=== PATIENT | male | born 1985 ===

== ENCOUNTER 2024-11-02 08:36 | Inpatient (IN) | payer OTHER, SELFPAY ==
[2024-11-02 08:42] VITALS: BP 155/99; PULSE 220; RESP 16; TEMP 36.9; O2SAT 98; BMI 26.6
--- NOTE | 2024-11-02 08:48 | ECG_ITS ---
Test Reason : tachycardia Blood Pressure : */* mmHG Vent. Rate : 107 BPM Atrial Rate : 107 BPM P-R Int : 126 ms QRS Dur : 100 ms QT Int : 328 ms P-R-T Axes : 81 63 64 degrees QTcB Int : 437 ms Sinus tachycardia Otherwise normal ECG No previous ECGs available Referred By: Generic ED Physician Electronically Signed By: CESAR PIEDRA MD
[2024-11-02 09:04] LABS: MANUAL DIFF FLAG NO
[2024-11-02 09:11] LABS: Basophils Absolute Auto 0.1 X10*3/uL (0.0-0.2); Basophils Percent Auto 0.5 % (0-2); Eosinophils Absolute Auto 0.1 X10*3/uL (0.0-0.4); Eosinophils Percent Auto 0.6 % (0-4); Hematocrit 46.6 % (42.0-52.0); Hemoglobin 15.6 g/dl (14.0-18.0); Imm Gran Abs Auto 0.04 X10*3/uL (0.00-0.03); Imm Gran Pct Auto 0.4 % (0.0-0.4); Lymphocytes Absolute Auto 1.5 X10*3/uL (1.2-4.9); Lymphocytes Percent Auto 15.1 % (20-40); Mean Corpuscular HGB Conc 33.5 g/dl (31.0-36.0); Mean Corpuscular Hemoglobin 29.1 pg (27.0-33.0); Mean Corpuscular Volume 86.9 fL (80.0-98.0); Mean Platelet Volume 10.3 fL (9.4-12.4); Monocytes Absolute Auto 0.9 X10*3/uL (0.1-1.2); Monocytes Percent Auto 8.8 % (2-11); Neutrophils Absolute Auto 7.5 x10*3/uL (2.0-8.3); Neutrophils Percent Auto 74.6 % (45-73); Platelet Count 243 X10*3/uL (160-400); Red Blood Count 5.36 X10*6/uL (4.60-5.80); Red Cell Distribution Width 13.2 % (11.0-16.0); White Blood Count 10.1 X10*3/uL (4.8-10.8)
[2024-11-02 09:19] LABS: Alanine Aminotransferase 24 U/L (0-40); Albumin Level 4.4 g/dL (3.5-5.0); Alkaline Phosphatase 57 U/L (39-117); Anion Gap 11 (12-20); Aspartate Amino Transferase 29 U/L (5-37); Bilirubin Total 0.9 mg/dL (0.0-1.0); Blood Urea Nitrogen 12 mg/dL (9-16); Calcium 9.2 mg/dL (8.4-10.2); Carbon Dioxide 26 mmol/L (22-29); Chloride 104 mmol/L (96-108); Creatinine Clr Calc Pharmacy 107.8; Estimated Glomerular Filt Rate > 60; Glucose Random 99 mg/dL (60-115); Potassium 3.9 mmol/L (3.3-5.1); Sodium 137 mmol/L (135-145); Total Protein 7.4 g/dL (6.5-8.0)
[2024-11-02 09:21] VITALS: BP 175/98; PULSE 115; RESP 14; TEMP 36.9; O2SAT 98
[2024-11-02 09:29] LABS: Troponin-I High Sensitivity < 2.7 ng/L (<3.5-35.0)
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
[2024-11-02 11:04] VITALS: BP 142/98; PULSE 110; RESP 13; TEMP 36.9; O2SAT 98
[2024-11-02 11:24] LABS: Appearance Urine Clear; Color Urine Yellow; Glucose Urine UA Negative (Negative); Leukocyte Esterase Urine Negative (Negative); Nitrite Urine Negative (Negative); Specific Gravity - Urine 1.015 (1.005-1.025); Urine Blood Negative (Negative); Urine Ketones 40 mg/dL (Negative); Urine Protein Negative (Neg-Trace)
[2024-11-02] MEDS: LORazepam 1 MG TABLET 2 MG PO ×2 (11:33→21:58)
[2024-11-02 11:35] LABS: Amphetamine Screen Urine POSITIVE (Not Detect); Barbiturates, Urine Not Detected (Not Detect); Benzodiazepines Screen Urine Not Detected (Not Detect); Buprenorphine Scr Positive (Not Detect); Cannabinoid Screen Urine Not Detected (Not Detect); Cocaine Screen Urine Not Detected (Not Detect); Fentanyl, urine Not Detected (Not Detect); Methadone Screen, Urine Not Detected (Not Detect); Opiate Screen Urine Not Detected (Not Detect); Oxycodone Screen Urine Not Detected (Not Detect); Phencyclidine Screen Urine Not Detected (Not Detect)
[2024-11-02 12:04] LABS: Ethanol < 10 mg/dL
--- NOTE | 2024-11-02 19:26 | PC.NURSE ---
Patient awake and alert. skin pwd, resp even and non labored. flat affect, reports increased depression, intermittent thoughts of SI, when asked if he has a plan patient states that he cannot say because then we would stop him. denies HI. calm and cooperative with care. currently resting watching TV
[2024-11-02 21:01] VITALS: BP 127/79; PULSE 104; RESP 18; TEMP 36.6; O2SAT 95
[2024-11-02 21:03] LABS: Acetaminophen LAB < 3 mcg/mL (<30); Salicylate < 5.0 mg/dL (15-30)
--- NOTE | 2024-11-02 22:26 | PC.NURSE ---
Patient resting, watching TV. skin pwd, resp even and non labored. flat affect, reports increased anxiety. medicated with ativan per order.
--- NOTE | 2024-11-02 23:27 | MHC.EDTECH ---
this tech assumed care of pt @ 2300, at this time the pt was witnessed resting quietly in his bed in the room
--- NOTE | 2024-11-03 00:15 | PC.NURSE ---
Care assumed and report received at 2300. The pt has been resting comfortably in the back area without distress noted. TV remains on for comfort at this time and does not appear to be providing any disruption to the pt and/or pod.
[2024-11-03 06:30] VITALS: BP 116/71; PULSE 99; RESP 17; TEMP 36.6; O2SAT 98
--- NOTE | 2024-11-03 06:38 | PC.NURSE ---
Late entry for 11/02 at 2300 Report received and care assumed at 2300. pt found to be resting comfortably in back area with eyes closed, respirations even and unlabored without distress noted. pt covered in blanket with tv on for comfort. pt has slept through the night without any needs reported or noted
--- NOTE | 2024-11-03 07:17 | PC.NURSE ---
Assumed care of patient at 0645, patient appears to be in no apparent distress at this time, sleeping, respirations even and unlabored. Continue plan of care for inpatient bedsearch
[2024-11-03] MEDS: LORazepam 1 MG TABLET 2 MG PO (20:30)
[2024-11-03 20:33] VITALS: BP 133/79; PULSE 91; RESP 20; TEMP 36.8; O2SAT 98
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
--- NOTE | 2024-11-04 05:42 | PC.NURSE ---
Patient slept through the night, no distress observed/reported at this time, 15 minutes safety check, no behavior and safety concerns, disposition per care team is sec-12 inpatient bed search, VSS, will continue to monitor
[2024-11-04 06:32] VITALS: BP 119/70; PULSE 80; RESP 17; TEMP 36.4; O2SAT 99
[2024-11-04 14:00] VITALS: BP 130/79; PULSE 90; RESP 16; TEMP 36.5; O2SAT 100
[2024-11-04 16:16] LABS: Alanine Aminotransferase 21 U/L (0-40); Albumin Level 4.1 g/dL (3.5-5.0); Alkaline Phosphatase 57 U/L (39-117); Anion Gap 13 (12-20); Aspartate Amino Transferase 25 U/L (5-37); Bilirubin Total 0.4 mg/dL (0.0-1.0); Blood Urea Nitrogen 19 mg/dL (9-16); Calcium 9.5 mg/dL (8.4-10.2); Carbon Dioxide 27 mmol/L (22-29); Chloride 106 mmol/L (96-108); Creatinine Clr Calc Pharmacy 86.2; Estimated Glomerular Filt Rate > 60; Glucose Random 142 mg/dL (60-115); Potassium 4.6 mmol/L (3.3-5.1); Sodium 141 mmol/L (135-145); Total Protein 7.3 g/dL (6.5-8.0)
--- NOTE | 2024-11-04 17:56 | PC.NURSE ---
Pt refused flu vaccine at this time
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
[2024-11-04 19:30] VITALS: BP 134/68; PULSE 85; RESP 16; TEMP 37.3; O2SAT 97
[2024-11-05 07:00] VITALS: BMI 25.6
[2024-11-05 07:25] VITALS: BP 117/70; PULSE 80; RESP 16; TEMP 36.9; O2SAT 99
[2024-11-05] MEDS: Nicotine 21 MG PATCH.TD24 TRANSDERMA (08:36)
[2024-11-05] MEDS: FLUoxetine HCl 20 MG CAPSULE PO (08:36)
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
[2024-11-05] MEDS: Acetaminophen 325 MG TABLET 650 MG PO (17:30)
[2024-11-05 21:30] VITALS: BP 132/82; PULSE 88; RESP 18; TEMP 36.8; O2SAT 97
[2024-11-05 21:35] VITALS: BP 132/82
[2024-11-05] MEDS: Prazosin HCL 1 MG CAPSULE PO (21:35)
[2024-11-06 07:20] VITALS: BP 130/59; PULSE 90; RESP 16; TEMP 37.1; O2SAT 98
--- NOTE | 2024-11-06 09:06 | HO.PSYCHPN ---
Subjective Subjective Date of Service: 11/06/24 Reason For Visit: Crisis Subjective Notes: 3 Day Interim History: pt signed 3 day notice; up on 11/11/24. Guarded. Irritable edge. Continues to report feeling depressed; pt stated, When my visited today. I told her I had an affair. She walked out and told me not to contact her again . Pt reports he feels like a failure . denies any side effects from starting medications. Pt states he is open to seeing a therapist when discharged. Medication Compliance: Yes Side effects from medications: No Attending Groups: Intermittent Review of Systems Constitutional: Reports as per HPI Eyes: Reports as per HPI Reports as per HPI Cardiovascular: Reports as per HPI Respiratory: Reports as per HPI Gastrointestinal: Reports as per HPI Genitourinary: Reports as per HPI Musculoskeletal: Reports as per HPI Skin/Breast: Reports as per HPI Reports as per HPI Psychiatric: Reports as per HPI Endocrine: Reports as per HPI Hematologic/Lymphatic: Reports as per HPI Allergic/Immunologic: Reports as per HPI Mental Status Exam Mental Status Exam Patient Appearance: Well Grooomed Patient Orientation: Person, Place, Time and Situation Level of Consciousness: Awake and Alert Patient Behavior: Guarded, Passive and Good Eye Contact Mood Description: Depressed Affect Description: Constricted Ability to Follow Directions: Good Speech Pattern: Clear Memory Description: Intact Thought Process: Intact Thought Content: positive for Intact Diagnostics Vital Signs (24Hr): Vital Signs - 24 hr 11/05/24 21:30 11/05/24 21:35 11/06/24 07:20 Temperature 98.2 F 98.7 F Pulse Rate 88 90 Respiratory Rate 18 16 Blood Pressure 132/82 132/82 130/59 L Pulse Oximetry 97 98 Oxygen Delivery Method Room Air Room Air BMI result Body Mass Index 25.6 Labs 11/02/24 09:00 11/04/24 15:28 Labs: Laboratory Results - last 48 hr 11/04/24 15:28 Sodium 141 Potassium 4.6 Chloride 106 Carbon Dioxide 27 Anion Gap 13 BUN 19 H Creatinine 1.15 Estim Creat Clear Calc 86.2 Estimated GFR > 60 Random Glucose 142 H Calcium 9.5 Total Bilirubin 0.4 AST 25 ALT 21 Alkaline Phosphatase 57 Total Protein 7.3 Albumin 4.1 Medications Medications Current Medications Acetaminophen (Acetaminophen 325 Mg Tablet) 650 mg PO Q6H PRN PRN Reason: Headache/Pain Mild Scale (1-3) Last Admin: 11/05/24 17:30 Dose: 650 mg Al Hydroxide/Mg Hydroxide (Magnesium Hydrox/Alum Hydrox 30 Ml Oral.Susp) 30 ml PO Q6H PRN PRN Reason: Heartburn/Nausea Fluoxetine HCl (Fluoxetine Hcl 20 Mg Capsule) 20 mg PO DAILY [facility] Last Admin: 11/05/24 08:36 Dose: 20 mg Hydroxyzine HCl (Hydroxyzine Hcl 25 Mg Tablet) 25 mg PO Q6H PRN PRN Reason: Anxiety Magnesium Hydroxide (Milk Of Magnesia 30 Ml Oral.Susp) 30 ml PO DAILY PRN PRN Reason: Constipation Nicotine (Nicotine 21 Mg Patch.Td24) 21 mg TRANSDERMA DAILY [facility] Last Admin: 11/05/24 08:36 Dose: 21 mg Nicotine Polacrilex (Nicotine Polacrilex 2 Mg Gum) 4 mg BUCCAL Q2H PRN PRN Reason: Nicotine Cravings Olanzapine (Olanzapine 5 Mg Tablet) 5 mg PO Q4H PRN PRN Reason: agitation Prazosin HCl (Prazosin Hcl 1 Mg Capsule) 1 mg PO BEDTIME [facility]; Protocol Last Admin: 11/05/24 21:35 Dose: 1 mg Trazodone HCl (Trazodone Hcl 50 Mg Tablet) 50 mg PO BEDTIME [id number] PRN PRN Reason: Insomnia Allergies Allergies Allergy/AdvReac Type Severity Reaction Status Date / Time No Known Allergies Allergy Verified 11/02/24 08:47 Assessment & Plan Assessment & Plan (1) MDD (major depressive disorder), recurrent episode: Status: Acute Code(s): F33.9 - Major depressive disorder, recurrent, unspecified (2) PTSD (post-traumatic stress disorder): Status: Acute Code(s): F43.10 - Post-traumatic stress disorder, unspecified (3) Alcohol use disorder: Status: Acute Code(s): F10.90 - Alcohol use, unspecified, uncomplicated (4) Stimulant use disorder: Status: Acute Code(s): F15.90 - Other stimulant use, unspecified, uncomplicated Plan Patient is a 39-year-old male with history of MDD, PTSD, ADHD, alcohol use disorder, stimulant use disorder and buprenorphine use disorder who self presented to ED due to suicidal ideation secondary to increased anxiety, insomnia and paranoia. Plan: CV 15 minute safety checks Start: Prozac 20mg PO daily Prazosin 1mg PO bedtime Obtain collateral Encourage groups Referral to outpatient psychiatric providers Discharge planning 11/06: pt signed 3 day notice; up on 11/11/24. Guarded. Irritable edge. Continues to report feeling depressed; pt stated, When my visited today. I told her I had an affair. She walked out and told me not to contact her again . Pt reports he feels like a failure . denies any side effects from starting medications. Pt states he is open to seeing a therapist when discharged. continue current tx plan. Patient educated on: diagnosis and medication risk/benefits Reason for continued inpatient stay Substantial Risk for: med/psych decompensation Time Spent With Patient Time: Total time managing care of this patient today _20___ minutes.
[2024-11-06] MEDS: FLUoxetine HCl 20 MG CAPSULE PO (09:19)
[2024-11-06] MEDS: Nicotine 21 MG PATCH.TD24 TRANSDERMA (09:20)
[2024-11-06] MEDS: Acetaminophen 325 MG TABLET 650 MG PO (12:34)
[2024-11-06 20:00] VITALS: BP 137/82; PULSE 94; RESP 16; TEMP 36.6; O2SAT 98
[2024-11-06] MEDS: Prazosin HCL 1 MG CAPSULE PO (20:22)
[2024-11-07 07:40] VITALS: BP 137/77; PULSE 90; RESP 14; TEMP 36.9; O2SAT 98
[2024-11-07] MEDS: FLUoxetine HCl 20 MG CAPSULE PO (08:35)
--- NOTE | 2024-11-07 10:28 | HO.PSYCHPN ---
Subjective Subjective Date of Service: 11/07/24 Reason For Visit: Crisis Interim History: pt signed 3 day notice; up on 11/11/24. Reports he si feeling better since coming to the hospital. He keeps mostly to self. Guarded. Irritable edge. He is tolerating medications. No pain. Observed talking on the phone, engaged and laughing. Denies any side effects from starting medications. Denies SI. Review of Systems Review of Systems Constitutional: No fever, chills, fatigue, night sweats, weight changes ENT/Mouth: No ear pain, hearing loss, nasal congestion, sinus pain, rhinorrhea, sore throat Eyes: No eye pain, swelling, redness, vision changes, discharge Cardio: No chest pain, palpitations, XAVIER, orthopnea, peripheral edema Pulm: No SOB, cough, sputum, wheezing, dyspnea, hemoptysis GI: No nausea, vomiting, hematemesis, abdominal pain, diarrhea, constipation, hematochezia, melena : No irregular bleeding, dysuria, frequency, urgency, hesitancy, hematuria, flank pain, urinary flow changes, urinary incontinence or retention MSK: No back pain, neck pain, joint pain, myalgias Skin: No lesions, rashes Neuro: No weakness, numbness, paresthesias, LOC, dizziness, headache Psych: No depression, HI, AH/VH, +SI, +anxiety, +insomnia All other systems reviewed and are negative. Constitutional: Reports as per HPI Eyes: Reports as per HPI Reports as per HPI Cardiovascular: Reports as per HPI Respiratory: Reports as per HPI Gastrointestinal: Reports as per HPI Genitourinary: Reports as per HPI Musculoskeletal: Reports as per HPI Skin/Breast: Reports as per HPI Reports as per HPI Psychiatric: Reports as per HPI Endocrine: Reports as per HPI Hematologic/Lymphatic: Reports as per HPI Allergic/Immunologic: Reports as per HPI Mental Status Exam Mental Status Exam Patient Appearance: Well Grooomed Patient Orientation: Person, Place, Time and Situation Level of Consciousness: Awake and Alert Patient Behavior: Guarded, Passive and Good Eye Contact Mood Description: Depressed Affect Description: Constricted Ability to Follow Directions: Good Speech Pattern: Clear Memory Description: Intact Diagnostics Vital Signs (24Hr): Vital Signs - 24 hr 11/06/24 20:00 11/07/24 07:40 Temperature 98 F 98.5 F Pulse Rate 94 90 Respiratory Rate 16 14 Blood Pressure 137/82 137/77 Pulse Oximetry 98 98 Oxygen Delivery Method Room Air Room Air BMI result Body Mass Index 25.6 Labs 11/02/24 09:00 11/04/24 15:28 Medications Medications Current Medications Acetaminophen (Acetaminophen 325 Mg Tablet) 650 mg PO Q6H PRN PRN Reason: Headache/Pain Mild Scale (1-3) Last Admin: 11/06/24 12:34 Dose: 650 mg Al Hydroxide/Mg Hydroxide (Magnesium Hydrox/Alum Hydrox 30 Ml Oral.Susp) 30 ml PO Q6H PRN PRN Reason: Heartburn/Nausea Fluoxetine HCl (Fluoxetine Hcl 20 Mg Capsule) 20 mg PO DAILY [facility] Last Admin: 11/07/24 08:35 Dose: 20 mg Hydroxyzine HCl (Hydroxyzine Hcl 25 Mg Tablet) 25 mg PO Q6H PRN PRN Reason: Anxiety Magnesium Hydroxide (Milk Of Magnesia 30 Ml Oral.Susp) 30 ml PO DAILY PRN PRN Reason: Constipation Nicotine (Nicotine 21 Mg Patch.Td24) 21 mg TRANSDERMA DAILY [facility] Last Admin: 11/07/24 08:54 Dose: Not Given Nicotine Polacrilex (Nicotine Polacrilex 2 Mg Gum) 4 mg BUCCAL Q2H PRN PRN Reason: Nicotine Cravings Olanzapine (Olanzapine 5 Mg Tablet) 5 mg PO Q4H PRN PRN Reason: agitation Prazosin HCl (Prazosin Hcl 1 Mg Capsule) 1 mg PO BEDTIME [facility]; Protocol Last Admin: 11/06/24 20:22 Dose: 1 mg Trazodone HCl (Trazodone Hcl 50 Mg Tablet) 50 mg PO BEDTIME MRX1 PRN PRN Reason: Insomnia Allergies Allergies Allergy/AdvReac Type Severity Reaction Status Date / Time No Known Allergies Allergy Verified 11/02/24 08:47 Assessment & Plan Assessment & Plan (1) MDD (major depressive disorder), recurrent episode: Status: Acute Code(s): F33.9 - Major depressive disorder, recurrent, unspecified (2) PTSD (post-traumatic stress disorder): Status: Acute Code(s): F43.10 - Post-traumatic stress disorder, unspecified (3) Alcohol use disorder: Status: Acute Code(s): F10.90 - Alcohol use, unspecified, uncomplicated (4) Stimulant use disorder: Status: Acute Code(s): F15.90 - Other stimulant use, unspecified, uncomplicated Plan Patient is a 39-year-old male with history of MDD, PTSD, ADHD, alcohol use disorder, stimulant use disorder and buprenorphine use disorder who self presented to ED due to suicidal ideation secondary to increased anxiety, insomnia and paranoia. Plan: CV 15 minute safety checks Start: Prozac 20mg PO daily Prazosin 1mg PO bedtime Obtain collateral Encourage groups Referral to outpatient psychiatric providers Discharge planning 11/06: pt signed 3 day notice; up on 11/11/24. Guarded. Irritable edge. Continues to report feeling depressed; pt stated, When my visited today. I told her I had an affair. She walked out and told me not to contact her again . Pt reports he feels like a failure . denies any side effects from starting medications. Pt states he is open to seeing a therapist when discharged. continue current tx plan. 11/07: continue current management and treatment plan. Reason for continued inpatient stay Substantial Risk for: harm to self and rapid decompensation Time Spent With Patient Time: Total time managing care of this patient today ____ minutes.
[2024-11-07] MEDS: Acetaminophen 325 MG TABLET 650 MG PO (10:41)
[2024-11-07 11:54] LABS: Cholesterol 207 mg/dL (<200); HDL Cholesterol 60 mg/dL (>40); LDL Cholesterol Calculated 125 mg/dL (<100); Triglycerides 113 mg/dL (<150)
[2024-11-07 20:00] VITALS: BP 127/78; PULSE 79; RESP 16; TEMP 37.1; O2SAT 98
[2024-11-07] MEDS: Prazosin HCL 1 MG CAPSULE PO (20:14)
[2024-11-07] MEDS: hydrOXYzine HCL 25 MG TABLET PO (20:21)
[2024-11-08 07:35] VITALS: BP 134/82; PULSE 94; RESP 16; TEMP 36.9; O2SAT 98
[2024-11-08] MEDS: FLUoxetine HCl 20 MG CAPSULE PO (09:14)
--- NOTE | 2024-11-08 09:49 | HO.PSYCHPN ---
Subjective Subjective Date of Service: 11/08/24 Reason For Visit: Crisis Interim History: Patient denying any complaints. Says he is not anxious or depressed today. Pt signed 3 day notice; up on 11/11/24. Reports he si feeling better since coming to the hospital. Guarded. He is medication compliant. He is tolerating Fluoxetine and Prazosin well. Denies SI. Review of Systems Review of Systems Constitutional: No fever, chills, fatigue, night sweats, weight changes ENT/Mouth: No ear pain, hearing loss, nasal congestion, sinus pain, rhinorrhea, sore throat Eyes: No eye pain, swelling, redness, vision changes, discharge Cardio: No chest pain, palpitations, XAVIER, orthopnea, peripheral edema Pulm: No SOB, cough, sputum, wheezing, dyspnea, hemoptysis GI: No nausea, vomiting, hematemesis, abdominal pain, diarrhea, constipation, hematochezia, melena : No irregular bleeding, dysuria, frequency, urgency, hesitancy, hematuria, flank pain, urinary flow changes, urinary incontinence or retention MSK: No back pain, neck pain, joint pain, myalgias Skin: No lesions, rashes Neuro: No weakness, numbness, paresthesias, LOC, dizziness, headache Psych: No depression, HI, AH/VH, +SI, +anxiety, +insomnia All other systems reviewed and are negative. Constitutional: Reports as per HPI Eyes: Reports as per HPI Reports as per HPI Cardiovascular: Reports as per HPI Respiratory: Reports as per HPI Gastrointestinal: Reports as per HPI Genitourinary: Reports as per HPI Musculoskeletal: Reports as per HPI Skin/Breast: Reports as per HPI Reports as per HPI Psychiatric: Reports as per HPI Endocrine: Reports as per HPI Hematologic/Lymphatic: Reports as per HPI Allergic/Immunologic: Reports as per HPI Mental Status Exam Mental Status Exam Patient Appearance: Well Grooomed Patient Orientation: Person, Place, Time and Situation Level of Consciousness: Awake and Alert Patient Behavior: Guarded, Passive and Good Eye Contact Mood Description: Depressed Affect Description: Constricted Ability to Follow Directions: Good Speech Pattern: Clear Memory Description: Intact Diagnostics Vital Signs (24Hr): Vital Signs - 24 hr 11/07/24 20:00 11/08/24 07:35 Temperature 98.7 F 98.4 F Pulse Rate 79 94 Respiratory Rate 16 16 Blood Pressure 127/78 134/82 Pulse Oximetry 98 98 Oxygen Delivery Method Room Air Room Air BMI result Body Mass Index 25.6 Labs 11/02/24 09:00 11/04/24 15:28 Labs: Laboratory Results - last 48 hr 11/07/24 11:12 Triglycerides 113 Cholesterol 207 H LDL Cholesterol, Calc 125 H HDL Cholesterol 60 Medications Medications Current Medications Acetaminophen (Acetaminophen 325 Mg Tablet) 650 mg PO Q6H PRN PRN Reason: Headache/Pain Mild Scale (1-3) Last Admin: 11/07/24 10:41 Dose: 650 mg Al Hydroxide/Mg Hydroxide (Magnesium Hydrox/Alum Hydrox 30 Ml Oral.Susp) 30 ml PO Q6H PRN PRN Reason: Heartburn/Nausea Fluoxetine HCl (Fluoxetine Hcl 20 Mg Capsule) 20 mg PO DAILY [facility] Last Admin: 11/08/24 09:14 Dose: 20 mg Hydroxyzine HCl (Hydroxyzine Hcl 25 Mg Tablet) 25 mg PO Q6H PRN PRN Reason: Anxiety Last Admin: 11/07/24 20:21 Dose: 25 mg Magnesium Hydroxide (Milk Of Magnesia 30 Ml Oral.Susp) 30 ml PO DAILY PRN PRN Reason: Constipation Nicotine (Nicotine 21 Mg Patch.Td24) 21 mg TRANSDERMA DAILY [facility] Last Admin: 11/08/24 09:15 Dose: Not Given Nicotine Polacrilex (Nicotine Polacrilex 2 Mg Gum) 4 mg BUCCAL Q2H PRN PRN Reason: Nicotine Cravings Olanzapine (Olanzapine 5 Mg Tablet) 5 mg PO Q4H PRN PRN Reason: agitation Prazosin HCl (Prazosin Hcl 1 Mg Capsule) 1 mg PO BEDTIME [facility]; Protocol Last Admin: 11/07/24 20:14 Dose: 1 mg Trazodone HCl (Trazodone Hcl 50 Mg Tablet) 50 mg PO BEDTIME MRX1 PRN PRN Reason: Insomnia Allergies Allergies Allergy/AdvReac Type Severity Reaction Status Date / Time No Known Allergies Allergy Verified 11/02/24 08:47 Assessment & Plan Assessment & Plan (1) MDD (major depressive disorder), recurrent episode: Status: Acute Code(s): F33.9 - Major depressive disorder, recurrent, unspecified (2) PTSD (post-traumatic stress disorder): Status: Acute Code(s): F43.10 - Post-traumatic stress disorder, unspecified (3) Alcohol use disorder: Status: Acute Code(s): F10.90 - Alcohol use, unspecified, uncomplicated (4) Stimulant use disorder: Status: Acute Code(s): F15.90 - Other stimulant use, unspecified, uncomplicated Plan Patient is a 39-year-old male with history of MDD, PTSD, ADHD, alcohol use disorder, stimulant use disorder and buprenorphine use disorder who self presented to ED due to suicidal ideation secondary to increased anxiety, insomnia and paranoia. Plan: CV 15 minute safety checks Start: Prozac 20mg PO daily Prazosin 1mg PO bedtime Obtain collateral Encourage groups Referral to outpatient psychiatric providers Discharge planning 11/06: pt signed 3 day notice; up on 11/11/24. Guarded. Irritable edge. Continues to report feeling depressed; pt stated, When my visited today. I told her I had an affair. She walked out and told me not to contact her again . Pt reports he feels like a failure . denies any side effects from starting medications. Pt states he is open to seeing a therapist when discharged. continue current tx plan. 11/07: continue current management and treatment plan. 11/08: Continue current management and treatment plan. Reason for continued inpatient stay Substantial Risk for: harm to self, inability to function and rapid decompensation Time Spent With Patient Time: Total time managing care of this patient today ____ minutes.
[2024-11-08] MEDS: Acetaminophen 325 MG TABLET 650 MG PO (10:47)
[2024-11-08] MEDS: Ibuprofen 600 MG TABLET PO ×2 (11:36→20:45)
[2024-11-08 20:00] VITALS: BP 133/89; PULSE 93; TEMP 36.6; O2SAT 99
[2024-11-08] MEDS: traZODone HCL 50 MG TABLET PO (21:20)
[2024-11-09 07:36] VITALS: BP 133/90; PULSE 98; RESP 16; TEMP 36.8; O2SAT 98
[2024-11-09] MEDS: FLUoxetine HCl 20 MG CAPSULE PO (09:06)
[2024-11-09] MEDS: Acetaminophen 325 MG TABLET 650 MG PO (09:35)
--- NOTE | 2024-11-09 10:18 | P.PNPSI_ITS ---
Subjective Subjective Date of Service: 11/09/24 Reason For Visit: Crisis Subjective Notes: 3 Day Interim History: Active on unit, social with peers. attending groups. pt reports he would like to attend [facility] after discharge; social science analyst aware. Patient reports feeling restless but not depressed. denies SI/HI/VH/AH. per nursing, slept 7 hours. Medication Compliance: Yes Side effects from medications: No Attending Groups: Yes Review of Systems Constitutional: Reports as per HPI Eyes: Reports as per HPI Reports as per HPI Cardiovascular: Reports as per HPI Respiratory: Reports as per HPI Gastrointestinal: Reports as per HPI Genitourinary: Reports as per HPI Musculoskeletal: Reports as per HPI Skin/Breast: Reports as per HPI Reports as per HPI Psychiatric: Reports as per HPI Endocrine: Reports as per HPI Hematologic/Lymphatic: Reports as per HPI Allergic/Immunologic: Reports as per HPI Mental Status Exam Mental Status Exam Narrative: Pt is alert and oriented; behavior is cooperative, calm; dressed in casual attire; mood is described as restless ; eye contact appropriate; Speech is normal rate, volume and not pressured; thought process is organized; Thought content is on tx; denies SI/HI/VH/AH. Diagnostics Vital Signs (24Hr): Vital Signs - 24 hr 11/08/24 20:00 11/09/24 07:36 Temperature 97.8 F 98.2 F Pulse Rate 93 98 Respiratory Rate 16 Blood Pressure 133/89 133/90 H Pulse Oximetry 99 98 Oxygen Delivery Method Room Air Room Air BMI result Body Mass Index 25.6 Labs 11/02/24 09:00 11/04/24 15:28 Labs: Laboratory Results - last 48 hr 11/07/24 11:12 Triglycerides 113 Cholesterol 207 H LDL Cholesterol, Calc 125 H HDL Cholesterol 60 Medications Medications Current Medications Acetaminophen (Acetaminophen 325 Mg Tablet) 650 mg PO Q6H PRN PRN Reason: Headache/Pain Mild Scale (1-3) Last Admin: 11/09/24 09:35 Dose: 650 mg Al Hydroxide/Mg Hydroxide (Magnesium Hydrox/Alum Hydrox 30 Ml Oral.Susp) 30 ml PO Q6H PRN PRN Reason: Heartburn/Nausea Fluoxetine HCl (Fluoxetine Hcl 20 Mg Capsule) 20 mg PO DAILY [facility] Last Admin: 11/09/24 09:06 Dose: 20 mg Hydroxyzine HCl (Hydroxyzine Hcl 25 Mg Tablet) 25 mg PO Q6H PRN PRN Reason: Anxiety Last Admin: 11/07/24 20:21 Dose: 25 mg Ibuprofen (Ibuprofen 600 Mg Tablet) 600 mg PO Q6H PRN PRN Reason: Pain, Moderate(Pain Scale 4-6) Last Admin: 11/08/24 20:45 Dose: 600 mg Magnesium Hydroxide (Milk Of Magnesia 30 Ml Oral.Susp) 30 ml PO DAILY PRN PRN Reason: Constipation Nicotine (Nicotine 21 Mg Patch.Td24) 21 mg TRANSDERMA DAILY [facility] Last Admin: 11/09/24 09:06 Dose: Not Given Nicotine Polacrilex (Nicotine Polacrilex 2 Mg Gum) 4 mg BUCCAL Q2H PRN PRN Reason: Nicotine Cravings Olanzapine (Olanzapine 5 Mg Tablet) 5 mg PO Q4H PRN PRN Reason: agitation Prazosin HCl (Prazosin Hcl 1 Mg Capsule) 1 mg PO BEDTIME [facility]; Protocol Last Admin: 11/08/24 20:47 Dose: Not Given Trazodone HCl (Trazodone Hcl 50 Mg Tablet) 50 mg PO BEDTIME MRX1 PRN PRN Reason: Insomnia Last Admin: 11/08/24 21:20 Dose: 50 mg Allergies Allergies Allergy/AdvReac Type Severity Reaction Status Date / Time No Known Allergies Allergy Verified 11/02/24 08:47 Assessment & Plan Assessment & Plan (1) MDD (major depressive disorder), recurrent episode: Status: Acute Code(s): F33.9 - Major depressive disorder, recurrent, unspecified (2) PTSD (post-traumatic stress disorder): Status: Acute Code(s): F43.10 - Post-traumatic stress disorder, unspecified (3) Alcohol use disorder: Status: Acute Code(s): F10.90 - Alcohol use, unspecified, uncomplicated (4) Stimulant use disorder: Status: Acute Code(s): F15.90 - Other stimulant use, unspecified, uncomplicated Plan Patient is a 39-year-old male with history of MDD, PTSD, ADHD, alcohol use disorder, stimulant use disorder and buprenorphine use disorder who self presented to ED due to suicidal ideation secondary to increased anxiety, insomnia and paranoia. Plan: CV 15 minute safety checks Start: Prozac 20mg PO daily Prazosin 1mg PO bedtime Obtain collateral Encourage groups Referral to outpatient psychiatric providers Discharge planning 11/06: pt signed 3 day notice; up on 11/11/24. Guarded. Irritable edge. Continues to report feeling depressed; pt stated, When my visited today. I told her I had an affair. She walked out and told me not to contact her again . Pt reports he feels like a failure . denies any side effects from starting medications. Pt states he is open to seeing a therapist when discharged. continue current tx plan. 11/07: continue current management and treatment plan. 11/08: Continue current management and treatment plan. 11/09: Active on unit, social with peers. attending groups. pt reports he would like to attend [facility] after discharge; social science analyst aware. Patient reports feeling restless but not depressed. denies SI/HI/VH/AH. per nursing, slept 7 hours. continue current tx plan. Patient educated on: diagnosis, medication risk/benefits and therapeutic strategies Reason for continued inpatient stay Substantial Risk for: med/psych decompensation Time Spent With Patient Time: Total time managing care of this patient today _20___ minutes.
[2024-11-09] MEDS: Ibuprofen 600 MG TABLET PO (11:46)
[2024-11-09 19:55] VITALS: RESP 16
[2024-11-09 22:30] VITALS: TEMP 36.4
[2024-11-09] MEDS: Loperamide HCl 2 MG CAPSULE PO (22:45)
[2024-11-09] MEDS: Ondansetron ODT 4 MG TAB.RAPDIS TRANSLINGU (22:45)
[2024-11-10] MEDS: Ibuprofen 600 MG TABLET PO ×3 (07:09→20:18)
[2024-11-10 08:00] VITALS: RESP 18
[2024-11-10] MEDS: Acetaminophen 325 MG TABLET 650 MG PO (12:04)
--- NOTE | 2024-11-10 14:51 | P.PNPSI_ITS ---
Subjective Subjective Date of Service: 11/10/24 Reason For Visit: Crisis Interim History: found resting in bed, rousable. declined interview c/o very poor sleep 2/2 vomiting and diarrhea overnight. informed of norovirus testing. per staff, 3- day up tomorrow. + groups. refused prazosin last night. Mental Status Exam Mental Status Exam Narrative: Pt is alert and oriented; behavior is cooperative, calm; dressed in casual attire; mood is not assessed; eye contact appropriate; Speech is normal rate, volume and not pressured; thought process is organized; Thought content is on tx; no SI/HI/VH/AH expressed. Diagnostics Vital Signs (24Hr): Vital Signs - 24 hr 11/09/24 19:55 11/09/24 22:30 11/10/24 08:00 Temperature 97.5 F Respiratory Rate 16 18 BMI result Body Mass Index 25.6 Labs 11/02/24 09:00 11/04/24 15:28 Medications Medications Current Medications Acetaminophen (Acetaminophen 325 Mg Tablet) 650 mg PO Q6H PRN PRN Reason: Headache/Pain Mild Scale (1-3) Last Admin: 11/10/24 12:04 Dose: 650 mg Al Hydroxide/Mg Hydroxide (Magnesium Hydrox/Alum Hydrox 30 Ml Oral.Susp) 30 ml PO Q6H PRN PRN Reason: Heartburn/Nausea Fluoxetine HCl (Fluoxetine Hcl 20 Mg Capsule) 20 mg PO DAILY [facility] Last Admin: 11/10/24 10:27 Dose: Not Given Hydroxyzine HCl (Hydroxyzine Hcl 25 Mg Tablet) 25 mg PO Q6H PRN PRN Reason: Anxiety Last Admin: 11/07/24 20:21 Dose: 25 mg Ibuprofen (Ibuprofen 600 Mg Tablet) 600 mg PO Q6H PRN PRN Reason: Pain, Moderate(Pain Scale 4-6) Last Admin: 11/10/24 14:35 Dose: 600 mg Loperamide HCl (Loperamide Hcl 2 Mg Capsule) 2 mg PO Q6H PRN PRN Reason: loose stool Last Admin: 11/09/24 22:45 Dose: 2 mg Magnesium Hydroxide (Milk Of Magnesia 30 Ml Oral.Susp) 30 ml PO DAILY PRN PRN Reason: Constipation Nicotine Polacrilex (Nicotine Polacrilex 2 Mg Gum) 4 mg BUCCAL Q2H PRN PRN Reason: Nicotine Cravings Olanzapine (Olanzapine 5 Mg Tablet) 5 mg PO Q4H PRN PRN Reason: agitation Ondansetron HCl (Ondansetron Odt 4 Mg Tab.Rapdis) 4 mg TRANSLINGU Q6H PRN PRN Reason: Nausea and Vomiting Last Admin: 11/09/24 22:45 Dose: 4 mg Prazosin HCl (Prazosin Hcl 1 Mg Capsule) 1 mg PO BEDTIME [facility]; Protocol Last Admin: 11/09/24 22:33 Dose: Not Given Trazodone HCl (Trazodone Hcl 50 Mg Tablet) 50 mg PO BEDTIME MRX1 PRN PRN Reason: Insomnia Last Admin: 11/08/24 21:20 Dose: 50 mg Allergies Allergies Allergy/AdvReac Type Severity Reaction Status Date / Time No Known Allergies Allergy Verified 11/02/24 08:47 Assessment & Plan Assessment & Plan (1) MDD (major depressive disorder), recurrent episode: Status: Acute Code(s): F33.9 - Major depressive disorder, recurrent, unspecified (2) PTSD (post-traumatic stress disorder): Status: Acute Code(s): F43.10 - Post-traumatic stress disorder, unspecified (3) Alcohol use disorder: Status: Acute Code(s): F10.90 - Alcohol use, unspecified, uncomplicated (4) Stimulant use disorder: Status: Acute Code(s): F15.90 - Other stimulant use, unspecified, uncomplicated Plan Patient is a 39-year-old male with history of MDD, PTSD, ADHD, alcohol use disorder, stimulant use disorder and buprenorphine use disorder who self presented to ED due to suicidal ideation secondary to increased anxiety, insomnia and paranoia. Plan: CV 15 minute safety checks Start: Prozac 20mg PO daily Prazosin 1mg PO bedtime Obtain collateral Encourage groups Referral to outpatient psychiatric providers Discharge planning 11/06: pt signed 3 day notice; up on 11/11/24. Guarded. Irritable edge. Continues to report feeling depressed; pt stated, When my visited today. I told her I had an affair. She walked out and told me not to contact her again . Pt reports he feels like a failure . denies any side effects from starting medications. Pt states he is open to seeing a therapist when discharged. continue current tx plan. 11/07: continue current management and treatment plan. 11/08: Continue current management and treatment plan. 11/09: Active on unit, social with peers. attending groups. pt reports he would like to attend PHP after discharge; social human services assistants aware. Patient reports feeling restless but not depressed. denies SI/HI/VH/AH. per nursing, slept 7 hours. continue current tx plan. 11/10: very poor sleep overnight due to vomiting and diarrhea. declined interview as a result. check for norovirus, otherwise continue current mgmt for now. Reason for continued inpatient stay Substantial Risk for: harm to self and inability to function Time Spent With Patient Time: Total time managing care of this patient today ____ minutes.
[2024-11-10 20:00] VITALS: BP 122/68; PULSE 97; RESP 16; TEMP 36.9; O2SAT 98
[2024-11-10] MEDS: traZODone HCL 50 MG TABLET PO (21:11)
--- NOTE | 2024-11-10 22:18 | PC.NURSE ---
Pt refused HS Prazosin at 2100, states it gives me nightmare .
[2024-11-11 07:28] VITALS: BP 124/75; PULSE 102; RESP 16; TEMP 37.3; O2SAT 98
[2024-11-11] MEDS: FLUoxetine HCl 20 MG CAPSULE PO (09:06)
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
== END 2024-11-11 11:20 | disposition home or self-care (01) | DRG 885 ==
LOC: HO.ED 18:39 → HO.PADLT16 11-04 12:57
PROVIDERS: Physician Assistant Medical; Admitting Provider Registered Nurse; Emergency Provider Emergency Medicine; Visit Provider Psychiatry & Neurology Psychiatry
DX: F33.9 Major depressive disorder, recurrent, unspecified (principal); R45.851 Suicidal ideations; F19.10 Other psychoactive substance abuse, uncomplicated; F43.10 Post-traumatic stress disorder, unspecified; F10.90 Alcohol use, unspecified, uncomplicated; F15.90 Other stimulant use, unspecified, uncomplicated
CPT/HCPCS: 36415; 80053; 80061; 80143; 80179; 80307; 81003; 84484; 85025; 93005; 99285; S9485

== ENCOUNTER → 2024-11-02 08:48 | Outpatient (BNV) | payer OTHER, SELFPAY | PROVIDERS: Emergency Provider Emergency Medicine; Visit Provider Internal Medicine Cardiovascular Disease | DX: R00.0 Tachycardia, unspecified (principal) | CPT/HCPCS: 93010 ==

== ENCOUNTER → 2024-11-04 12:53 | Outpatient (BNV) | payer OTHER, SELFPAY | PROVIDERS: Admitting Provider Registered Nurse; Emergency Provider Emergency Medicine; Visit Provider Psychiatry & Neurology Psychiatry | DX: F33.9 Major depressive disorder, recurrent, unspecified (principal); F43.10 Post-traumatic stress disorder, unspecified; F10.90 Alcohol use, unspecified, uncomplicated; F15.90 Other stimulant use, unspecified, uncomplicated | CPT/HCPCS: 90792; 99231; 99232; 99239 ==

== ENCOUNTER → 2024-12-16 11:00 | Outpatient (BNV) | payer OTHER, SELFPAY | PROVIDERS: Visit Provider Psychiatry & Neurology Psychiatry | DX: F33.9 Major depressive disorder, recurrent, unspecified (principal); F34.89 Other specified persistent mood disorders; F11.20 Opioid dependence, uncomplicated; F19.20 Other psychoactive substance dependence, uncomplicated; F43.10 Post-traumatic stress disorder, unspecified; Z86.59 Personal history of other mental and behavioral disorders | CPT/HCPCS: 99214 ==

== ENCOUNTER 2024-12-18 14:08 | Outpatient (REF) | payer OTHER, SELFPAY ==
[2024-12-18 14:47] LABS: Amphetamine Screen Urine Not Detected (Not Detect); Barbiturates, Urine Not Detected (Not Detect); Benzodiazepines Screen Urine Not Detected (Not Detect); Buprenorphine Scr Not Detected (Not Detect); Cannabinoid Screen Urine Not Detected (Not Detect); Cocaine Screen Urine Not Detected (Not Detect); Fentanyl, urine Not Detected (Not Detect); Methadone Screen, Urine Not Detected (Not Detect); Opiate Screen Urine Not Detected (Not Detect); Oxycodone Screen Urine Not Detected (Not Detect); Phencyclidine Screen Urine Not Detected (Not Detect)
== END 2024-12-18 14:09 | disposition home or self-care (01) ==
LOC: HO.LNP 14:08
PROVIDERS: Visit Provider Psychiatry & Neurology Psychiatry
DX: F15.99 Other stimulant use, unspecified with unspecified stimulant-induced disorder (principal); F10.90 Alcohol use, unspecified, uncomplicated; F33.2 Major depressive disorder, recurrent severe without psychotic features
CPT/HCPCS: 80307

== ENCOUNTER 2024-12-24 11:00 | Outpatient (RCR) | payer OTHER, SELFPAY ==
[2024-12-11 10:47] VITALS: BMI 25.4
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
--- NOTE | 2024-12-11 18:30 | HO.PS.ADMBH ---
HPI Date of Service: 12/11/24 Chief Complaint: MDD Sources of Information: patient interviewed, chart reviewed and crisis/core team assessment reviewed HPI Narrative: Patient is a 39 yo male with with history of MDD, PTSD, ADHD, alcohol use disorder, stimulant use disorder and buprenorphine use disorder who step-down from [facility] after being admitted 7 days for suicidal ideation secondary to increased anxiety, insomnia and paranoia. He was discharged 1 month ago on fluoxetine. ?I just cracked, the depression, lack of focus, old trauma coming up and just could not deal with it. People around me wanted me to go in . Thus far he has found fluoxetine to be partially effective, he notices not being as depressed day-to-day however he continues to have mood swings better very intense, marked by irritability poor frustration tolerance, ice ?I snap at people. My (ex) is really triggering me.? She struggles with mood lability, anger outbursts, agitation, sleep irregularity, appetite poor, and energy unstable and fluctuates throughout the day. Anxiety is pretty high? however apathy numbness some of this he. He endorses passive SI but admits as long as he avoids substances he is not a danger to himself. He denies any HI, AH, VH or other psychotic symptoms. No evidence of thought disorder, is calm, cooperative, but minimally engaged with irritable edge, distractible, appears annoyed, evasive around some subjects, most focused on complaints of his . He agrees with plan to start a mood stabilizer. Past Psychiatric History: [facility] x1: No prior PHP, respite, detox/rehab admissions Does not have outpatient psychiatric providers History of taking Adderall when he was younger stopped getting prescriptions for this at the age of 18. CURRENT MEDICATIONS: fluoxetine 20 mg qam [facility] Medical History (Updated 12/16/24 @ 23:03 by Pascale Dorado MD) Stimulant use disorder Alcohol use disorder Family History: Unknown Social History: Lives with mother. but for the past year. Three children who are in their mother's custody. Unemployed. High school diploma. Trauma History: Yes Diagnostics Vital Signs (24Hr): BMI result Body Mass Index 25.4 Meds/Allergies Allergies Allergies Allergy/AdvReac Type Severity Reaction Status Date / Time No Known Allergies Allergy Verified 11/02/24 08:47 Mental Status Exam Mental Status Exam Narrative: Alert, oriented, in no acute distress. Calm, cooperative, engageable but guarded and evasive at times, somewhat defensive. Mild hyperactivity with leg bouncing, animated communicator, shifting in seat but remains seated for encounter. Eye contact intermittent. Mood depressed, affect dysthymic, mild irritable edge. Speech normal. Thought process linear, coherent. Thought content related to stressors, overwhelmed, annoyed at times, some transient helplessness and hopelessness, denies SI, intention or plan. Denies any aggressive ideation. No paranoia or delusional content elicited. No evidence of psychosis. Insight and judgment fair but adequate. Assessment & Plan Assessment & Plan (1) MDD (major depressive disorder), recurrent episode: Status: Acute Code(s): F33.9 - Major depressive disorder, recurrent, unspecified (2) Other specified persistent mood disorders: Status: Acute Code(s): F34.89 - Other specified persistent mood disorders Assessment and Plan: mood dysregulation, namely emotional reactivity, low frustration tolerance w irritability (likely related to ADHD) h/o SIMD r/o cyclothymia vs Bipolar spectrum or other mood disorders r/o character pathology (3) Polysubstance (including opioids) dependence, daily use: Status: Acute Code(s): F11.20 - Opioid dependence, uncomplicated; F19.20 - Other psychoactive substance dependence, uncomplicated (4) PTSD (post-traumatic stress disorder): Status: Acute Code(s): F43.10 - Post-traumatic stress disorder, unspecified (5) History of ADHD: Status: Acute Code(s): Z86.59 - Personal history of other mental and behavioral disorders Plan Admit to [facility] VS pending start cariprazine 1.5 mg qhs continue other regular medications?- fluoxetine 20 mg qam Routine lab work ordered as indicated EKG, routine for baseline QTc for medication considerations as indicated UDS as indicated MassPat reviewed Continue to monitor as per protocol Patient educated on: diagnosis, medication risk/benefits and substance abuse Informed Consent: understands Reason for continued partial hosp. stay Substantial Risk for: inability to function, rapid decompensation and med/psych decompensation Certification I certify that partial hospital treatment is medically necessary due to the symptoms and problems resulting from the patient's mental illness and the failure to treat the patient at the partial hospital level of care would likely result in the patient requiring inpatient psychiatric care which could not be prevented at a less intensive level of care. Time Spent With Patient Time: Total time managing care of this patient today __60__ minutes.
--- NOTE | 2024-12-15 23:19 | HO.PHPPROGNO ---
Subjective Subjective Date of Service: 12/15/24 Reason For Visit: MDD Interim History: Patient seen for follow-up. no major events or concerns in the interim. Things are going okay I guess He has been taking cariprazine 1.5 mg qhs, denies any adverse effects. He feels he is calmer and more stable, is that the medication? He relays frustrations dealing with his /soon to be ex-. He smiles dryly She says I'm a narcissist. I dont know...maybe I am . He has been trying to refrain from engaging in bad habits, says he is a very impulsive person in general. He denies feeling irritable or sheppard, but relays being very reactive if provoked. He has not had any incidents in the past few days. Feels a little more in control, denies any relapses, some transient cravings, although says he has not had any recently, but also adds that he is not really out there (in the community) right now I'm mostly just doing the program and going home... just staying out of trouble for now . He is not sure if this stability will continue to hold up once he has left the program. We continues on fluoxetine, feels it has helped him with depression. Initially experienced some side effects (emotional blunting, feeling numb/empty) but says this has resolved. He denies any anxiety at this time. Will start amantadine to target ADHD, impulsivity and substance/cocaine addiction. Medication Compliance: Yes Side effects from medications: No Attending Groups: Yes Review of Systems Acute medical concerns: No Mental Status Exam Mental Status Exam Narrative: Alert, oriented, in no acute distress. Calm, cooperative, engageable but guarded and evasive at times, somewhat defensive. Mild hyperactivity with leg bouncing, animated communicator, shifting in seat but remains seated for encounter. Eye contact intermittent. Mood calmer less depressed, less irritable, affect variable, momentarily intense edge, no lability or irritability. Speech normal. Thought process linear, coherent. Thought content related to stressors, impulsivity, easily annoyed at times (mostly by his ex-partner,, denies SI, intention or plan. Denies any aggressive ideation or HI. No paranoia or delusional content elicited. No evidence of psychosis. Insight and judgment fair but adequate. Diagnostics Vital Signs (24Hr): BMI result Body Mass Index 25.4 Assessment & Plan Assessment & Plan (1) MDD (major depressive disorder), recurrent episode: Status: Acute Code(s): F33.9 - Major depressive disorder, recurrent, unspecified (2) Other specified persistent mood disorders: Status: Acute Code(s): F34.89 - Other specified persistent mood disorders Assessment and Plan: mood dysregulation, namely emotional reactivity, low frustration tolerance w irritability (likely related to ADHD) h/o SIMD r/o cyclothymia vs Bipolar spectrum or other mood disorders r/o character pathology (3) Polysubstance (including opioids) dependence, daily use: Status: Acute Code(s): F11.20 - Opioid dependence, uncomplicated; F19.20 - Other psychoactive substance dependence, uncomplicated (4) PTSD (post-traumatic stress disorder): Status: Acute Code(s): F43.10 - Post-traumatic stress disorder, unspecified (5) History of ADHD: Status: Acute Code(s): Z86.59 - Personal history of other mental and behavioral disorders Plan Continue PHP start amantadine 100 mg qhs continue cariprazine 1.5 mg qhs continue fluoxetine 20 mg qam Routine lab work ordered as indicated EKG, routine for baseline QTc for medication considerations as indicated UDS as indicated MassPat reviewed Continue to monitor Patient educated on: diagnosis, medication risk/benefits and substance abuse Informed Consent: understands Reason for contiued partial hosp. stay Substantial Risk for: inability to function and med/psych decompensation Certification I certify that partial hospital treatment is medically necessary due to the symptoms and problems resulting from the patient's mental illness and the failure to treat the patient at the partial hospital level of care would likely result in the patient requiring inpatient psychiatric care which could not be prevented at a less intensive level of care. Total time managing care of this patient today __30__ minutes. Discharge Plan Discharge Attending provider: Pascale Dorado Medications: New cariprazine 1.5 mg capsule 1.5 mg PO BEDTIME Qty: 14 0RF amantadine HCl 100 mg tablet 100 mg PO BEDTIME Qty: 14 0RF Rx Instructions: take 1/2 tablet daily at bedtime for 2 nights, then increase to one tablet daily at bedtime No Action fluoxetine 20 mg Capsule 20 mg PO DAILY 30 Days Qty: 30 0RF Print Language: Ecuadorean
--- NOTE | 2024-12-17 17:03 | HO.PHP ---
Client's case has been opened and reviewed in team.
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
--- NOTE | 2024-12-24 22:51 | HO.PHPPROGNO ---
Subjective Subjective Date of Service: 12/24/24 Reason For Visit: MDD Interim History: Patient seen for follow-up, anticipating discharge at the end of program today.? Overall doing fine. My mood is okay, definitely calmer . Still can feel a little irritable severity improved from 10/10 down to a 5/10 since starting Vraylar and amantadine. Reports anxiety as pretty good, not been too anxious . He has been having a few drinks last week, feels he can handle it. Reports no acute issues or concerns. Medication compliant, medications well-tolerated. Denies any adverse effects.?We again review risks, benefit, side effects of medication. Mood is stable.? Denies any hopelessness or SI. Denies thoughts of harming self or others at this time. Denies any aggressive ideation or HI. Denies any paranoia or AH or VH. Sleep, appetite, energy stable. Medication Compliance: Yes Side effects from medications: No Attending Groups: Yes Review of Systems Acute medical concerns: No Mental Status Exam Mental Status Exam Narrative: Alert, oriented, in no acute distress. Calm, cooperative. Mood stable, affect appropriate. Speech normal. Thought process linear, coherent, more goal-directed. Thought content related to stressors, future-oriented, denies any helplessness, hopelessness or SI.? No aggressive ideation or HI. No paranoia or delusional content elicited. No evidence of psychosis. Insight and judgment fair-good. Diagnostics Vital Signs (24Hr): BMI result Body Mass Index 25.4 Assessment & Plan Assessment & Plan (1) MDD (major depressive disorder), recurrent episode: Status: Acute Code(s): F33.9 - Major depressive disorder, recurrent, unspecified (2) Other specified persistent mood disorders: Status: Acute Code(s): F34.89 - Other specified persistent mood disorders (3) Polysubstance (including opioids) dependence, daily use: Status: Acute Code(s): F11.20 - Opioid dependence, uncomplicated; F19.20 - Other psychoactive substance dependence, uncomplicated (4) PTSD (post-traumatic stress disorder): Status: Acute Code(s): F43.10 - Post-traumatic stress disorder, unspecified (5) History of ADHD: Status: Acute Code(s): Z86.59 - Personal history of other mental and behavioral disorders Plan Discharge from [facility] Continue regular medications Refills sent to pharmacy Will defer further medication management to outpatient provider *Safety plan reviewed *Discharge diagnoses, treatment course, discharge plan have been reviewed with patient (including medication regime, medication management, potential side effects) as well as treatment rationale were also revisited *Discharge paperwork signed and given to patient, copy sent for scanning to chart Patient educated on: diagnosis, medication risk/benefits and substance abuse Informed Consent: understands Reason for contiued partial hosp. stay Substantial Risk for: stable for discharge Certification I certify that partial hospital treatment is medically necessary due to the symptoms and problems resulting from the patient's mental illness and the failure to treat the patient at the partial hospital level of care would likely result in the patient requiring inpatient psychiatric care which could not be prevented at a less intensive level of care. Total time managing care of this patient today __30__ minutes. Discharge Plan Discharge Attending provider: Pascale Dorado Medications: New amantadine HCl 100 mg tablet 100 mg PO BEDTIME Qty: 14 0RF Rx Instructions: take 1/2 tablet daily at bedtime for 2 nights, then increase to one tablet daily at bedtime cariprazine 3 mg capsule 3 mg PO DAILY Qty: 10 0RF Continued fluoxetine 20 mg Capsule 20 mg PO DAILY 30 Days Qty: 30 0RF Patient Education: ADHD in Adults (DC), Depression (DC), Abuse of Alcohol (DC), Polysubstance Abuse (ED) Print Language: Welsh
== END 2024-12-24 23:59 | disposition home or self-care (01) ==
LOC: HO.PHPA 11:00
PROVIDERS: Visit Provider Psychiatry & Neurology Psychiatry
DX: F33.9 Major depressive disorder, recurrent, unspecified (principal); F34.89 Other specified persistent mood disorders; F11.20 Opioid dependence, uncomplicated; F19.20 Other psychoactive substance dependence, uncomplicated; F43.10 Post-traumatic stress disorder, unspecified; Z86.59 Personal history of other mental and behavioral disorders; Z79.899 Other long term (current) drug therapy
CPT/HCPCS: 90791; 90853